=== PATIENT | female | born 1955 | race Caucasian/White ===

== ENCOUNTER 2022-02-23 05:57 | Day surgery (SDC) | payer OTHER ==
[2022-02-23] MEDS ORDERED: Ringers Lactate 1,000 ML IV ONE (06:32)
[2022-02-23] MEDS ORDERED: LIDOCAINE 1% MPF 10 ML AMPULE ONE (07:11)
[2022-02-23] MEDS ORDERED: propofoL 200 MG/20 ML VIAL IV ONE ×3 (07:11→07:54)
[2022-02-23] MEDS ORDERED: LIDOCAINE 1% MPF 2 ML AMPULE ONE (07:15)
--- NOTE | 2022-02-23 08:12 | ENDO RPT ---
[address], [address] COLONOSCOPY PROCEDURE REPORT EXAM DATE: 02/23/2022 PATIENT NAME: Gianna Can MR #: [id number] BIRTHDATE: 1955 ATTENDING: Ludwin Hannon MD STATUS: outpatient SOLAR ENERGY TECHNICIAN: Krystal Monson RN INDICATIONS: The patient is a 66 yr old Female here for a colonoscopy due to PROCEDURE PERFORMED: Flexible Sigmoidoscopy MEDICATIONS: Per Anesthesia. ESTIMATED BLOOD LOSS: None CONSENT: The patient understands the risks and benefits of the procedure and understands that these risks include, but are not limited to: sedation, allergic reaction, infection, perforation and/or bleeding. Alternative means of evaluation and treatment include, among others: physical exam, x-rays, and/or surgical intervention. The patient elects to proceed with this endoscopic procedure. DESCRIPTION OF PROCEDURE: During intra-op preparation period all mechanical medical equipment was checked for proper function. Hand hygiene and appropriate measures for infection prevention was taken. Procedure, possible complications, alternatives including, but not limited to possibility of bleeding, perforation, tear, infection, sepsis, need for surgery, need for blood transfusion, were explained to the patient. After the risks, benefits and alternatives of the procedure were thoroughly explained, Informed consent was verified, confirmed and timeout was successfully executed by the treatment team. The patient was placed in the left lateral position. A digital rectal exam was performed and revealed external hemorrhoids. After appropriate level of anesthesia, the scope was passed. The EC-3890Li ([id number]) and EC-3890Li ([id number]) endoscope was introduced through the anus and advanced to the sigmoid colon. The quality of the prep was inadequate. The instrument was then slowly withdrawn as the colon was fully examined. Scope withdrawal time was . COLON FINDINGS: Diverticula was found in the sigmoid colon. The opening was medium sized. Retroflexed views revealed no abnormalities. The scope was then completely withdrawn from the patient and the procedure terminated. ADVERSE EVENTS: There were no complications. IMPRESSIONS: 1. Diverticula in the sigmoid colon 2. External hemorrhoids 3. Internal hemorrhoids RECOMMENDATIONS: 1. no seeds in diet 2. Need complete colonoscopy with acceptable bowel preparation. RECALL: Return in 1 week(s) for Colonoscopy. Need better bowel preparation for a safe colonoscopy. Ludwin Hannon MD eSigned: Ludwin Hannon MD 02/23/2022 8:12 AM cc: Patrick Hodge M.D. CPT CODES: ICD9 CODES: PATIENT NAME: Gianna Can MR#: [id number]
[2022-02-23 15:13] VITALS: BP 125/74; TEMP 97; O2SAT 100
== END 2022-02-23 09:05 | disposition home or self-care (01) ==
LOC: OR 05:57
PROVIDERS: ATTEND Surgery
PROC: 0DJD8ZZ Inspection of Lower Intestinal Tract, Via Natural or Artificial Opening Endoscopic (ICD-10-PCS; principal; 2022-02-23 07:30)
DX: Z12.11 Encounter for screening for malignant neoplasm of colon (principal); K64.8 Other hemorrhoids; K64.4 Residual hemorrhoidal skin tags; K57.30 Diverticulosis of large intestine without perforation or abscess without bleeding
CPT/HCPCS: 45378; J2704 ×2; J7120

== ENCOUNTER 2022-03-16 06:10 | Day surgery (SDC) | payer OTHER ==
[2022-03-16] MEDS ORDERED: Ringers Lactate 1,000 ML IV ONE (06:24)
[2022-03-16] MEDS ORDERED: propofoL 200 MG/20 ML VIAL IV ONE (07:02)
[2022-03-16] MEDS ORDERED: LIDOCAINE 1% MPF 5 ML VIAL ONE (07:02)
[2022-03-16 08:45] VITALS: BP 142/85; TEMP 97.8; O2SAT 100
--- NOTE | 2022-03-16 11:48 | ENDO RPT ---
[address], [address] COLONOSCOPY PROCEDURE REPORT EXAM DATE: 03/16/2022 PATIENT NAME: Gianna Can MR #: [id number] BIRTHDATE: 1955 ATTENDING: Ludwin Hannon MD STATUS: outpatient PHYSICAL THERAPY PROFESSOR: Krystal Monson RN INDICATIONS: The patient is a 66 yr old Female here for a colonoscopy due to colon cancer screening PROCEDURE PERFORMED: Colonoscopy MEDICATIONS: Per Anesthesia. ESTIMATED BLOOD LOSS: None CONSENT: The patient understands the risks and benefits of the procedure and understands that these risks include, but are not limited to: sedation, allergic reaction, infection, perforation and/or bleeding. Alternative means of evaluation and treatment include, among others: physical exam, x-rays, and/or surgical intervention. The patient elects to proceed with this endoscopic procedure. DESCRIPTION OF PROCEDURE: During intra-op preparation period all mechanical medical equipment was checked for proper function. Hand hygiene and appropriate measures for infection prevention was taken. Procedure, possible complications, alternatives including, but not limited to possibility of bleeding, perforation, tear, infection, sepsis, need for surgery, need for blood transfusion, were explained to the patient. After the risks, benefits and alternatives of the procedure were thoroughly explained, Informed consent was verified, confirmed and timeout was successfully executed by the treatment team. The patient was placed in the left lateral position. A digital rectal exam was performed and revealed external hemorrhoids. After appropriate level of anesthesia, the scope was passed. The EC-3890Li ([id number]), EC-3890Li ([id number]), and EG-[id number] ([id number]) endoscope was introduced through the anus and advanced to the cecum, which was identified by transillumination from the light source, the appendix, and the ileocecal valve. The instrument was then slowly withdrawn as the colon was fully examined. Scope withdrawal time was . COLON FINDINGS: Diverticula was found throughout the entire examined colon. The opening was medium sized. Retroflexed views revealed no abnormalities. The scope was then completely withdrawn from the patient and the procedure terminated. ADVERSE EVENTS: There were no complications. IMPRESSIONS: 1. Diverticula throughout the entire examined colon 2. External hemorrhoids 3. Internal hemorrhoids RECOMMENDATIONS: 1. follow-up: office 1 week(s) 2. no seeds in diet RECALL: Return in 5-10 year(s) for Colonoscopy. Ludwin Hannon MD eSigned: Ludwin Hannon MD 03/16/2022 11:48 AM cc: Ludwin Hannon M.D. CPT CODES: ICD9 CODES: PATIENT NAME: Gianna Can MR#: [id number]
== END 2022-03-16 08:55 | disposition home or self-care (01) ==
LOC: OR 06:10
PROVIDERS: ATTEND Surgery
PROC: 0DJD8ZZ Inspection of Lower Intestinal Tract, Via Natural or Artificial Opening Endoscopic (ICD-10-PCS; principal; 2022-03-16 07:30)
DX: Z12.11 Encounter for screening for malignant neoplasm of colon (principal); K64.8 Other hemorrhoids; K64.4 Residual hemorrhoidal skin tags; K57.30 Diverticulosis of large intestine without perforation or abscess without bleeding; I10 Essential (primary) hypertension
CPT/HCPCS: J2704; J2001; J7120; G0121

== ENCOUNTER 2022-07-08 09:04 | Emergency (ER) | payer OTHER ==
[2022-07-08] MEDS ORDERED: NA CHLORIDE 0.9% 1,000 ML ONE (09:50)
[2022-07-08] MEDS ORDERED: KETOROLAC 30 MG/ML INJ ONE (09:50)
[2022-07-08] MEDS ORDERED: FAMOTIDINE 20 MG/2 ML VIAL IV ONE (09:50)
[2022-07-08 09:58] LABS: Urine Blood 2+ (Negative); Urine Glucose Negative (Negative); Urine Protein Negative (Negative); Urine pH 6.5 (5.0-7.0)
[2022-07-08 10:03] LABS: Absolute Lymphocytes (CBC) 1.5 K/uL (0.7-4.9); Hematocrit 41.3 % (36.0-45.0); Lymphocytes % 29.2 % (15.3-44.8); MCV 92.2 fL (80-100); MPV 6.8 fL (7.6-11.3); RBC Red Blood Cell Count 4.48 M/uL (3.86-4.86)
[2022-07-08 10:19] LABS: Albumin 3.9 g/dL (3.4-5.0); Bilirubin Total 0.6 mg/dL (0.2-1.0); Potassium 3.9 mmol/L (3.5-5.1); Protein, Total 7.2 g/dL (6.4-8.2)
[2022-07-08 10:58] LABS: Urine Bacteria None Seen /HPF (<20); Urine RBC <5 /HPF (None Seen)
--- NOTE | 2022-07-08 11:02 | RAD REPORT ---
EXAM DESCRIPTION: CTAbdomen Pelvis W Contrast - 07/08/2022 10:42 am CLINICAL HISTORY: ABD PAIN COMPARISON: No comparisons TECHNIQUE: CT of the abdomen and pelvis was performed with contrast. All CT scans are performed using dose optimization technique as appropriate and may include automated exposure control or mA/KV adjustment according to patient size. FINDINGS: Lower chest: No acute abnormality. Liver: No acute abnormality or suspicious lesions. Biliary: No biliary ductal dilatation. Stomach: No significant focal abnormality. Duodenum: Question irregular thickening in the region of the proximal duodenum. This could be seconda ry to underdistention, inflammation, or underlying lesion but is not well assessed. Pancreas: No significant abnormality. Spleen: No significant abnormality. Adrenal: No suspicious lesions. Kidney/ureter: No hydronephrosis. No renal calculi. Too small to characterize and/or benign appearing renal lesions are noted. Retroperitoneum: No retroperitoneal adenopathy. Vascular: No aneurysm. Bowel: Diverticulosis. No evidence of acute diverticulitis.. Normal appendix. Peritoneum: No ascites or free air. Bladder: Grossly unremarkable. Reproductive: Hysterectomy Bones: No acute fracture. Other: n/a IMPRESSION: No acute intra-abdominal or pelvic finding. Irregular wall thickening of the proximal duodenum as noted above. Consider upper endoscopy for furth er evaluation.
--- NOTE | 2022-07-08 11:17 | RAD REPORT ---
EXAM DESCRIPTION: US - Abdomen Exam Limited - 07/08/2022 11:01 am CLINICAL HISTORY: ABD PAIN COMPARISON: Abdomen Pelvis W Contrast dated 07/08/2022 FINDINGS: The gallbladder demonstrates a large shadowing gallstone. No pericholecystic fluid or gall bladder wall thickening. The common bile duct is normal measuring 2 mm. The liver demonstrates no findings of intrahepatic biliary dilatation. IMPRESSION: Cholelithiasis without sonographic evidence of acute cholecystitis.
[2022-07-08] MEDS ORDERED: PANTOPRAZOLE 40 MG INJ ONE (11:40)
[2022-07-08] MEDS ORDERED: SIMETHICONE 80 MG TAB ONE (11:40)
[2022-07-08 13:37] VITALS: TEMP 97
[2022-07-08 13:49] VITALS: BP 155/98; O2SAT 100
--- NOTE | 2022-07-22 16:27 | ER ---
Nurse's Notes [facility] Name: Gianna Can Age: 66 yrs Sex: Female : 1955 Arrival Date: 07/08/2022 Time: 09:07 Bed 14 Private MD: Diagnosis: Other cholelithiasis without obstruction;Duodenitis Presentation: 07/08 09:26 Chief complaint: Patient states: Intermittent RUQ "discomfort " x a few weeks, then ph last night had a sharp stabbing pain that radiated to R back and shoulder, also had nausea at that time, denies V/D, fever or chills. Coronavirus screen: Vaccine status: Patient reports being unvaccinated. Ebola Screen: No symptoms or risks identified at this time. Initial Sepsis Screen: Does the patient meet any 2 criteria? No. Patient's initial sepsis screen is negative. Does the patient have a suspected source of infection? No. Patient's initial sepsis screen is negative. Risk Assessment: Do you want to hurt yourself or someone else? Patient reports no desire to harm self or others. Onset of symptoms was July 08, 2022. 09:26 Method Of Arrival: Ambulatory ph 09:26 Acuity: [place] 3 ph Historical: - Allergies: 09:29 No Known Allergies; ph - PMHx: 09:29 Hypertensive disorder; ph - PSHx: 09:29 hysterectomy-partial; ph - Immunization history:: Adult Immunizations unknown. - Social history:: Smoking status: Patient denies any tobacco usage or history of. Screenin:58 [facility] ED Fall Risk Assessment (Adult) Score/Fall Risk Level 0 - 2 = Low Risk hb Oriented to surroundings, Maintained a safe environment, Educated pt \\T\\ family on fall prevention, incl call for assistance when getting out of bed. Abuse screen: Denies threats or abuse. Denies injuries from another. Nutritional screening: No deficits noted. Tuberculosis screening: No symptoms or risk factors identified. Assessment: 09:57 General: Appears in no apparent distress. Behavior is calm, cooperative. Neuro: Level hb of Consciousness is awake, alert, obeys commands, Oriented to person, place, time, situation. Cardiovascular: Patient's skin is warm and dry. Respiratory: Respiratory effort is even, unlabored, Respiratory pattern is regular, symmetrical. GI: Reports upper abdominal pain, nausea. : No signs and/or symptoms were reported regarding the genitourinary system. EENT: No signs and/or symptoms were reported regarding the EENT system. Derm: Skin is pink, warm \\T\\ dry. Musculoskeletal: No signs and/or symptoms reported regarding the musculoskeletal system. Vital Signs: 09:26 BP 143 / 96; Pulse 79; Resp 18; Temp 97; Pulse Ox 100% on R/A; ph 10:00 BP 152 / 87; Pulse 67; Resp 16; Pulse Ox 97% on R/A; hb 12:03 BP 155 / 98; Pulse 64; Resp 15; Pulse Ox 100% on R/A; hb ED Course: 09:07 Patient arrived in ED. jj6 09:10 Nolvia Staton FNP-C [facility]. snw 09:10 Vernon Souza MD is Attending Physician. snw 09:29 Triage completed. ph 09:30 Arm band placed on Patient placed in an exam room. ph 09:43 Roselia Burris, RN is Primary Nurse. hb 09:51 Inserted saline lock: 20 gauge in right antecubital area, using aseptic technique. hb Blood collected. 09:58 Patient has correct armband on for positive identification. hb 09:59 CBC with Diff Sent. hb 09:59 CMP Sent. hb 09:59 Lipase Sent. hb 10:44 CT Abd/Pelvis - IV Contrast Only In Process Unspecified. EDMS 11:03 Abdomen Limited US In Process Unspecified. EDMS 12:53 Sherri Hodge MD is Referral Physician. snw Administered Medications: 09:54 Drug: TORadol - Ketorolac IVP 15 mg Route: IVP; Site: right antecubital; kc6 09:54 Drug: Famotidine IVP 20 mg Route: IVP; Site: right antecubital; kc6 09:54 Drug: NS 0.9% IV 1000 ml Route: IV; Rate: 1 bolus; Site: right antecubital; kc6 11:32 Drug: Pantoprazole IVP 40 mg Route: IVP; Site: right antecubital; hb 12:03 Not Given (Patient Refused): Simethicone PO 240 mg PO once hb Medication: 09:58 VIS not applicable for this client. hb Outcome: 12:54 Discharge ordered by . snw 13:22 Patient left the ED. aa5 Signatures: Dispatcher [employer] EDMS Nolvia Staton, STREET OPENINGS INSPECTOR-C STREET OPENINGS INSPECTOR-Csnw Megan Grimm, RN RN aa5 Ivelisse June RN RN Roselia Burris, RN RN Anny Luna6 Laly Weinberg RN RN kc6
--- NOTE | 2022-07-22 16:27 | EDPHYS ---
Physician Documentation [facility] Name: Gianna Can Age: 66 yrs Sex: Female : 1955 Arrival Date: 07/08/2022 Time: 09:07 Bed 14 Private MD: ED Physician Vernon Souza HPI: 07/08 09:58 This 66 yrs old Female presents to ER via Ambulatory with complaints of Abdominal Pain. snw 09:58 The patient presents with abdominal pain in the right upper quadrant, right lower snw quadrant, abdominal distention that is diffuse. Onset: The symptoms/episode began/occurred gradually, 2 week(s) ago, and became worse last night. The symptoms radiate to right back. Associated signs and symptoms: Pertinent positives: nausea. The symptoms are described as crampy, sharp. Severity of pain: At its worst the pain was moderate. The patient has not experienced similar symptoms in the past. The patient has not recently seen a physician. only dietary change of late is decreasing carbs. Historical: - Allergies: 09:29 No Known Allergies; ph - PMHx: 09:29 Hypertensive disorder; ph - PSHx: 09:29 hysterectomy-partial; ph - Immunization history:: Adult Immunizations unknown. - Social history:: Smoking status: Patient denies any tobacco usage or history of. ROS: 09:57 Constitutional: Negative for fever, chills, and weight loss, Eyes: Negative for injury, snw pain, redness, and discharge, ENT: Negative for injury, pain, and discharge, Neck: Negative for injury, pain, and swelling, Cardiovascular: Negative for chest pain, palpitations, and edema, Respiratory: Negative for shortness of breath, cough, wheezing, and pleuritic chest pain, Back: Negative for injury and pain, : Negative for injury, bleeding, discharge, and swelling, MS/Extremity: Negative for injury and deformity, Skin: Negative for injury, rash, and discoloration, Neuro: Negative for headache, weakness, numbness, tingling, and seizure, Psych: Negative for depression, anxiety, suicide ideation, homicidal ideation, and hallucinations. 09:57 Abdomen/GI: Positive for abdominal pain, nausea, abdominal distension, of the right upper quadrant and right lower quadrant. Exam: 09:56 Constitutional: This is a well developed, well nourished patient who is awake, alert, snw and in no acute distress. Head/Face: Normocephalic, atraumatic. Eyes: Pupils equal round and reactive to light, extra-ocular motions intact. Lids and lashes normal. Conjunctiva and sclera are non-icteric and not injected. Cornea within normal limits. Periorbital areas with no swelling, redness, or edema. ENT: Nares patent. No nasal discharge, no septal abnormalities noted. Tympanic membranes are normal and external auditory canals are clear. Oropharynx with no redness, swelling, or masses, exudates, or evidence of obstruction, uvula midline. Mucous membranes moist. Neck: Trachea midline, no thyromegaly or masses palpated, and no cervical lymphadenopathy. Supple, full range of motion without nuchal rigidity, or vertebral point tenderness. No Meningismus. Chest/axilla: Normal chest wall appearance and motion. Nontender with no deformity. No lesions are appreciated. Cardiovascular: Regular rate and rhythm with a normal S1 and S2. No gallops, murmurs, or rubs. Normal PMI, no JVD. No pulse deficits. Respiratory: Lungs have equal breath sounds bilaterally, clear to auscultation and percussion. No rales, rhonchi or wheezes noted. No increased work of breathing, no retractions or nasal flaring. Back: No spinal tenderness. No costovertebral tenderness. Full range of motion. Skin: Warm, dry with normal turgor. Normal color with no rashes, no lesions, and no evidence of cellulitis. MS/ Extremity: Pulses equal, no cyanosis. Neurovascular intact. Full, normal range of motion. Neuro: Awake and alert, GCS 15, oriented to person, place, time, and situation. Cranial nerves II-XII grossly intact. Motor strength 5/5 in all extremities. Sensory grossly intact. Cerebellar exam normal. Normal gait. Psych: Awake, alert, with orientation to person, place and time. Behavior, mood, and affect are within normal limits. 09:56 Abdomen/GI: Inspection: abdomen appears normal, Bowel sounds: normal, Palpation: moderate abdominal tenderness, in the right upper quadrant, Indicators: McBurney's point is tender, Cameron's sign is negative. Vital Signs: 09:26 BP 143 / 96; Pulse 79; Resp 18; Temp 97; Pulse Ox 100% on R/A; ph 10:00 BP 152 / 87; Pulse 67; Resp 16; Pulse Ox 97% on R/A; hb 12:03 BP 155 / 98; Pulse 64; Resp 15; Pulse Ox 100% on R/A; hb MDM: 09:31 Patient medically screened. snw 12:56 Differential diagnosis: appendicitis, cholecystitis, Cholelithiasis, gastritis, snw gastroesophageal reflux disease, pancreatitis, Peptic Ulcer Disease. 12:56 Data reviewed: vital signs, nurses notes, lab test result(s), radiologic studies, CT snw scan. Counseling: I had a detailed discussion with the patient and/or guardian regarding: the historical points, exam findings, and any diagnostic results supporting the discharge/admit diagnosis, the presence of at least one elevated blood pressure reading (>120/80) during this emergency department visit, lab results, radiology results, the need for outpatient follow up, for definitive care, to return to the emergency department if symptoms worsen or persist or if there are any questions or concerns that arise at home. Special discussion: Based on the patient's Hx, exam, and Dx evaluation, there is no indication for emergent surgery or inpatient Tx. It is understood by the patient/guardian that if the Sx's persist or worsen they need to return immediately for re-evaluation. Based on the history and exam findings, there is no indication for further emergent testing or inpatient evaluation. 07/08 10:04 Order name: Labs - recollect needed: recollect urine/ not enough in either tube per eb [place]; Complete Time: 10:44 07/08 09:43 Order name: Urine Dipstick-Ancillary (obtain specimen); Complete Time: 09:59 snw 07/08 09:43 Order name: Labs collected and sent; Complete Time: 09:55 snw 07/08 09:43 Order name: IV Saline Lock; Complete Time: 09:55 snw 07/08 09:58 Order name: CT Abd/Pelvis - IV Contrast Only; Complete Time: 11:06 snw 07/08 09:43 Order name: Abdomen Limited US; Complete Time: 11:22 snw 07/08 09:58 Order name: Urine Dipstick-Ancillary; Complete Time: 09:59 EDMS 07/08 09:43 Order name: Urine Culture snw 07/08 09:43 Order name: Urine Microscopic Only; Complete Time: 11:06 snw 07/08 09:43 Order name: Lipase; Complete Time: 10:21 snw 07/08 09:43 Order name: CMP; Complete Time: 10:21 snw 07/08 09:43 Order name: CBC with Diff; Complete Time: 10:19 snw Administered Medications: 09:54 Drug: TORadol - Ketorolac IVP 15 mg Route: IVP; Site: right antecubital; kc6 09:54 Drug: Famotidine IVP 20 mg Route: IVP; Site: right antecubital; kc6 09:54 Drug: NS 0.9% IV 1000 ml Route: IV; Rate: 1 bolus; Site: right antecubital; kc6 11:32 Drug: Pantoprazole IVP 40 mg Route: IVP; Site: right antecubital; hb 12:03 Not Given (Patient Refused): Simethicone PO 240 mg PO once hb Disposition: 16:07 Co-signature as Attending Physician, Vernon Souza MD I reviewed the patient's care rn provided by the Advanced Practice Provider and agree with the diagnosis and treatment plan. Disposition Summary: 07/08/22 12:54 Discharge Ordered Location: Home snw Problem: new snw Symptoms: have improved snw Condition: Stable snw Diagnosis - Other cholelithiasis without obstruction snw - Duodenitis snw Followup: snw - With: Emergency Department - When: As needed - Reason: Worsening of condition Followup: snw - With: Sherri Hodge MD - When: 1 week - Reason: Recheck today's complaints, Continuance of care, Re-evaluation by your physician Discharge Instructions: - Gallbladder Eating Plan snw - Duodenitis snw - Gas and Gas Pains, Pediatric snw - Cholelithiasis snw - Discharge Summary Sheet snw Forms: - Prescription Opioid Use snw - Antibiotic Education snw - Thank You Letter snw - Medication Reconciliation Form snw Prescriptions: - Protonix 40 mg Oral tablet,delayed release (DR/EC) - take 1 tablet by ORAL route every 12 hours; 60 tablet; Refills: 0, Product snw Selection Permitted Signatures: Dispatcher [employer] EDNolvia Gonsalves, ELIAN-C REHABILITATION AIDE/SCHEDULER-Csnw Vernon Souza MD MD rn Hall, Patricia, RN RN ph Roselia Burris, RN RN Janneth Gagnon Kaitlyn RN RN kc6
== END 2022-07-08 13:22 | disposition home or self-care (01) ==
LOC: ER 09:04
DX: K80.80 Other cholelithiasis without obstruction (principal); K29.80 Duodenitis without bleeding; I10 Essential (primary) hypertension
CPT/HCPCS: 87088; 85025; 87086; 36415; 83690; 80053; 74177; 76705; 96375; 96374; 99284; Q9967; C9113; J7030; 81003; 81015

== ENCOUNTER 2023-03-01 07:37 | Day surgery (SDC) | payer OTHER ==
[2023-02-28 13:43] LABS: Absolute Lymphocytes (CBC) 1.9 K/uL (0.7-4.9); Hematocrit 42.5 % (36.0-45.0); Lymphocytes % 28.8 % (15.3-44.8); MCV 92.5 fL (80-100); Platelets 315 thou/uL (152-406); RBC Red Blood Cell Count 4.59 M/uL (3.86-4.86)
--- NOTE | 2023-02-28 14:00 | RAD REPORT ---
EXAM DESCRIPTION: RAD - Chest Pa And Lat (2 Views) - 02/28/2023 1:54 pm CLINICAL HISTORY: preop Chest pain. COMPARISON: No comparisons TECHNIQUE: PA and lateral views of the chest were obtained. FINDINGS: The lungs are hyperexpanded compatible with COPD. The heart is upper limit of normal in si ze. No fracture or aggressive bony process. IMPRESSION: COPD without acute process identified. The USPSTF recommends annual screening for lung cancer with low-dose CT (LDCT) in adults aged 50 to 80 years who have a 20 pack-year smoking history and currently smoke or have quit within the past 15 years.
[2023-02-28 14:13] LABS: Albumin 3.9 g/dL (3.4-5.0); Bilirubin Direct 0.1 mg/dL (0-0.2); Bilirubin Indirect, Calculated 0.4 mg/dL (0.2-0.8); Bilirubin Total 0.5 mg/dL (0.2-1.0); Potassium 3.9 mEq/L (3.5-5.1); Protein, Total 7.6 g/dL (6.4-8.2)
[2023-03-01] MEDS ORDERED: Ringers Lactate 1,000 ML IV ONE (08:01)
[2023-03-01] MEDS ORDERED: CEFOXITIN SODIUM 1 GM/VIAL ONE (08:01)
[2023-03-01] MEDS ORDERED: FENTANYL CITR 100 MCG/2 ML ONE (08:39)
[2023-03-01] MEDS ORDERED: MIDAZOLAM HCL 2 MG/2 ML INJ ONE (08:39)
[2023-03-01] MEDS ORDERED: KETOROLAC 30 MG/ML INJ ONE (08:44)
[2023-03-01] MEDS ORDERED: dexAMETHasone 10 MG/ML VIAL ONE (08:44)
[2023-03-01] MEDS ORDERED: ONDANSETRON 4 MG/2 ML VIAL ONE (08:44)
[2023-03-01] MEDS ORDERED: ROCURONIUM 50 MG/5 ML VIAL IV ONE (08:44)
[2023-03-01] MEDS ORDERED: propofoL 200 MG/20 ML VIAL IV ONE (08:44)
[2023-03-01] MEDS ORDERED: LIDOCAINE 2% MPF 5 ML VIAL ONE (08:45)
--- NOTE | 2023-03-01 09:31 | P.BOP ---
Preoperative diagnosis: symptomatic cholelithiasis Postoperative diagnosis: same Primary procedure: Laparoscopic cholecystectomy Estimated blood loss: <10cc Specimen: gb Findings: as above Anesthesia: General Complications: None Transferred to: Recovery Room Condition: Good
[2023-03-01] MEDS ORDERED: GLYCOPYRROLATE 0.2 MG/ML SYR ONE (09:32)
[2023-03-01] MEDS ORDERED: NEOSTIGMINE 1 MG/ML -10 ML VIAL ONE (09:32)
[2023-03-01] MEDS ORDERED: Mastisol Adhesive Liq ONE (09:33)
[2023-03-01] MEDS ORDERED: HYDROMORPHONE HCL 1 MG/ML INJ ONE (10:09)
[2023-03-01] MEDS ORDERED: CODEINE 30MG/APAP 300MG TAB ONE (10:48)
[2023-03-01 10:51] VITALS: BP 132/79; TEMP 97; O2SAT 96
--- NOTE | 2023-03-01 11:53 | OP ---
Date of Procedure: 03/01/2023 Surgeon: Ludwin Hannon MD Preoperative Diagnosis: Abdominal pain. Postoperative Diagnosis: Abdominal pain. Procedure: Laparoscopic cholecystectomy. Estimated Blood Loss: Less than 10 cc. Specimen: Gallbladder. Anesthesia: General plus local. Indications: This is a case of a female, who comes to us with above diagnosis. Fully explained the benefits, alternatives, and risks of laparoscopic, possible open cholecystectomy, which include, but not limited to infection, bleeding, damage to adjacent structures, anesthesia complication, choledoch olithiasis, bile leak, pancreatitis, GA, and even . She also understands this may not relieve t he symptoms. She might need more than one surgical intervention. She understood, signed a consent. Description Of Procedure: Patient was brought to the operating room, placed in supine position. Ane sthesia was induced without complication. Abdominal area was prepped and draped in a sterile fashion Marcaine 0.5% was injected for local anesthetic followed by sharp incision of the skin in the infrau mbilical region. Incision was carried down to fascia, which was opened under direct vision. Periton eum was encountered, opened under direct vision. Vicryl #1 placed inside the fascia. Lor trocar was carefully introduced. Pneumoperitoneum was obtained. I placed 3 more trocars, 5 mm each one of them, 1 in the epigastric area, 2 in the right upper quadrant using same technique, which consisted o f local anesthetic, sharp incision of the skin, and introduction of the trocars under direct vision. This allowed me to put a grasper in the fundus of the gallbladder, another grasper in infundibulum r etracting the gallbladder in the inferolateral fashion exposing the triangle of Calot, obtaining crit ical view. Cystic duct and cystic artery were clearly isolated, freed circumferentially and a connec tion between those and the gallbladder were clearly identified. I proceeded to ligate those by using at least 3 clips proximal, 1 clip distal, ligation in middle. Same was done with the cystic artery. No bile leak. No bleeding. The gallbladder was removed from liver using Bovie cauterizer and richard janine from abdominal cavity using EndoCatch through the umbilical incision. The area was inspected onc e again. No bile leak. No bleeding. At that moment, I proceeded to remove the trocars under direct vision. Deflated the pneumoperitoneum. Closed the fascia with #1 Vicryl, irrigated subcutaneous ti ssue, closed with 3-0 chromic and skin in a subcuticular fashion with 3-0 chromic and Steri-Strips on top. Sponge count and instrument counts were correct. Patient tolerated the procedure well. Angella hoyt was sent to recovery in stable condition. SUZETTE/KIERSTEN Voice ID: [id number] Report ID: [id number]
--- NOTE | 2023-03-01 14:23 | DS ---
Date of Discharge: 03/01/2023 Diagnoses: Right upper quadrant abdominal pain, symptomatic cholelithiasis. Condition: Stable. Disposition: Home. Procedure: Laparoscopic cholecystectomy. Plan: Follow up in my office in 1 week. Call for appointment at [phone]. Keep area dry for 48 yoshi rs, then may shower. Keep Steri-Strips intact. SUZETTE/KIERSTEN Voice ID: [id number] Report ID: [id number]
--- NOTE | 2023-03-01 18:05 | EKG ---
Test Date: 2023-02-28 Test Time: 13:35:59 [employer]: SHUN MEASUREMENT RESULTS: Intervals: Rate: 66 ME: 160 QRSD: 84 QT: 386 QTc: 404 [place]: P: 71 ME: 160 QRS: 68 T: 65 INTERPRETIVE STATEMENTS: Normal sinus rhythm Normal ECG Compared to ECG 12/04/2001 14:19:00 No significant changes Electronically Signed On 03-01-23 18:03:27 CDT by Jhony Bailey
== END 2023-03-01 11:29 | disposition home or self-care (01) ==
LOC: OR 07:37
PROVIDERS: ATTEND Surgery
PROC: 0FT44ZZ Resection of Gallbladder, Percutaneous Endoscopic Approach (ICD-10-PCS; principal; 2023-03-01 09:15)
DX: K80.10 Calculus of gallbladder with chronic cholecystitis without obstruction (principal)
CPT/HCPCS: 93005; 85025; 80048; 36415; 80076; 88304; 83690; 71046; 47562; J2704; J2710; J2001; J2250; J3010; J1100; J1170; J0694; J2405; J7120